=== PATIENT | female | born 1970 | race Caucasian/White ===

== ENCOUNTER 2017-09-27 08:55 | Outpatient (CLI) | payer OTHER | END 2017-09-27 08:56 | disposition home or self-care (01) | LOC: BICMAMMO 08:55 | DX: Z12.31 Encounter for screening mammogram for malignant neoplasm of breast (principal) | CPT/HCPCS: 77063; 77067 ==

== ENCOUNTER 2018-02-22 20:28 | Emergency (ER) | payer OTHER ==
[2018-02-22] MEDS ORDERED: Adacel (T-DAP) 0.5 ML VIAL ONE (21:23)
[2018-02-22] MEDS ORDERED: Bacitracin Zinc 1 Packet ONE (21:32)
== END 2018-02-22 21:42 | disposition home or self-care (01) ==
LOC: SCSER 20:28
DX: S01.551A Open bite of lip, initial encounter (principal); S01.511A Laceration without foreign body of lip, initial encounter; Z23 Encounter for immunization; W54.0XXA Bitten by dog, initial encounter
CPT/HCPCS: 12011; 90471; 90715